=== PATIENT | male | born 1990 | race Caucasian/White ===

== ENCOUNTER 2019-08-09 17:33 | Emergency (ER) | payer SELFPAY ==
[~2019-08-09] VITALS: Ht 185.4 cm; Wt 59.8 kg
--- NOTE | 2019-08-09 18:00 | NUR ---
PT C/O VOMITOMG 3 X OVER LAST 2 WEEEKS WITH INTERMITTENT DIARRHEA OVER SAME TIME PERIOD. PT HAS HX OF ANXIETY AND APPEARS ANXIOUS. CHART UP FOR MD. WAITING FOR ORDERS.
[2019-08-09] MEDS ORDERED: ONDANSETRON ODT 4 MG ONE (18:41)
[2019-08-09] MEDS ORDERED: LORazepam 1MG TABLET ONE (18:41)
--- NOTE | 2019-08-09 18:45 | NUR ---
PT MEDICATED ORDERED PER MD.
[2019-08-09] MEDS ORDERED: ONDANSETRON ODT 4 MG PO ONE (19:00)
[2019-08-09] MEDS ORDERED: LORazepam 1MG TABLET PO ONE (19:00)
[2019-08-09 19:03] LABS: BASOPHILS % (AUTO) 0 % (0-1); EOSINOPHILS % (AUTO) 0 % (1-7); LYMPHOCYTES # (AUTO) 0.55 x10^3/uL (1-3.4); LYMPHOCYTES % (AUTO) 3 % (22-44); MD NO; MEAN CORPUSCULAR HEMOGLOBIN 31.5 pg (27.5-34.5); MEAN CORPUSCULAR HGB CONC 33.7 g/dL (33.2-36.2); MEAN CORPUSCULAR VOLUME 93.4 fL (81-97); MONOCYTES % (AUTO) 4 % (2-9); NEUTROPHILS # (AUTO) 15.99 x10^3/uL (1.8-6.8); NEUTROPHILS % (AUTO) 93 % (42-75); PLATELET COUNT 212 x10^3/uL (130-400); RED BLOOD COUNT 4.98 x10^6/uL (4.38-5.82); RED CELL DISTRIBUTION WIDTH 12.6 % (9.4-14.8)
[2019-08-09 19:10] LABS: ALANINE AMINOTRANSFERASE 30 U/L (12-78); ALBUMIN 4.7 g/dL (3.4-5.0); ANION GAP 11 mmol/L (5-15); CALCIUM 9.5 mg/dL (8.5-10.1); CHLORIDE 106 mmol/L (98-107); CREATININE 1.16 mg/dL (0.7-1.3)
[2019-08-09 19:12] LABS: ALKALINE PHOSPHATASE 77 U/L (45-117); BILIRUBIN,TOTAL 1.4 mg/dL (0.2-1.0)
[2019-08-09] MEDS ORDERED: SODIUM CHLORIDE 0.9% 1,000ML IVBOLUS ONE (19:30)
--- NOTE | 2019-08-09 19:30 | NUR ---
PT REPORTS NAUSEA IS BETTER AFTER ZOFRAN ODT. PT TO HAVE CT DONE.
--- NOTE | 2019-08-09 20:00 | NUR ---
PT IN CT.
--- NOTE | 2019-08-09 20:10 | NUR ---
CHART UP FOR MD RECHECK. PT AWARE.
[2019-08-09] MEDS ORDERED: DIPHENHYDRAMINE 50 MG/ML, 1ML ONE (21:16)
[2019-08-09] MEDS ORDERED: METOCLOPRAMIDE 5 MG/ML, 2ML ONE (21:16)
[2019-08-09] MEDS ORDERED: DICYCLOMINE 10 MG/ML, 2ML ONE (21:22)
[2019-08-09] MEDS ORDERED: DIPHENHYDRAMINE 50 MG/ML, 1ML IVPush ONE (21:30)
[2019-08-09] MEDS ORDERED: METOCLOPRAMIDE 5 MG/ML, 2ML IVPush ONE (21:30)
[2019-08-09] MEDS ORDERED: DICYCLOMINE 10 MG/ML, 2ML IM ONE (21:30)
--- NOTE | 2019-08-09 21:36 | NUR ---
DR. ECHOLS AT BEDSIDE FOR RECHECK. PO CHALLENGE INITIATED AGAIN.
[2019-08-09] MEDS ORDERED: OMNIPAQUE 350 MG/ML, 100ML BOTTLE ONE (21:41)
[2019-08-09 21:56] VITALS: BP 102/52
== END 2019-08-09 21:59 | disposition home or self-care (01) ==
LOC: ED 19:08
DX: F41.1 Generalized anxiety disorder (principal); R11.2 Nausea with vomiting, unspecified; R19.7 Diarrhea, unspecified; R10.9 Unspecified abdominal pain
CPT/HCPCS: 36415; 74177; 80053; 83690; 83735; 85025; 96361; 96372; 96374; 96375; 99285; J0500; J1200; J2765; J7030; Q0162; Q9967